=== PATIENT | male | born 1965 ===

== ENCOUNTER 2018-08-02 10:00 | Day surgery (SDC) | payer OTHER ==
[~2018-08-02] VITALS: Ht 181.6 cm; Wt 122.5 kg
[~2018-08-02 10:00] MED LIST: CEFAZOLIN 1,000 MG ONE; DEXAMETHASONE 4 MG/ML, 1ML ONE; FENTANYL PF 250 MCG/5ML ONE; LIDOCAINE-MPF 2% ,5ML ONE; MEPERIDINE/PF 50 MG/ML ONE; MIDAZOLAM 1 MG/ML, 2ML ONE; PROPOFOL 10 MG/ML, 20ML ONE; ROCURONIUM 10MG/ML,5ML ONE; SODIUM CHLORIDE 0.9% PF 10ML ONE; SUCCINYLCHOLINE 20 MG/ML, 10ML ONE
[2018-08-02] MEDS ORDERED: LACTATED RINGERS 1,000 ML IV SCH (10:25)
[2018-08-02 10:26] VITALS: BP 147/92
[2018-08-02] MEDS ORDERED: METF-163 PO (10:41)
[2018-08-02] MEDS ORDERED: ATOR10TA9 PO (10:41)
[2018-08-02] MEDS ORDERED: TADA20TA PO (10:41)
[2018-08-02] MEDS ORDERED: ZOLM5TAB10 PO (10:44)
[2018-08-02] MEDS ORDERED: TELM20TA PO (10:44)
[2018-08-02] MEDS ORDERED: ONDANSETRON ODT 8 MG PO ONE (11:00)
[2018-08-02] MEDS ORDERED: GABAPENTIN 300 MG CAPSULE PO ONE (11:00)
[2018-08-02] MEDS ORDERED: ACETAMINOPHEN 500 MG TABLET PO ONE (11:00)
[2018-08-02] MEDS ORDERED: THROMBIN 5,000 UNIT VIAL TP ONE (11:57)
[2018-08-02] MEDS ORDERED: BUPIVACAINE/PF-EPI 0.5% 1:200K ONE (11:58)
[2018-08-02] MEDS ORDERED: BACITRACIN 50,000 UNIT ONE (11:58)
[2018-08-02] MEDS ORDERED: PROPOFOL 10 MG/ML, 20ML ONE (12:11)
[2018-08-02] MEDS ORDERED: PHENYLEPHRINE 10 MG/ML ONE (12:14)
[2018-08-02] MEDS ORDERED: DIAZEPAM 5 MG/ML, 2ML IVPush PRN (12:30)
[2018-08-02] MEDS ORDERED: MEPERIDINE/PF 25MG/0.5ML IVPush PRN (12:30)
[2018-08-02] MEDS ORDERED: OXYcodone 5 MG/5 ML ORAL.SOL UDC PO PRN (12:30)
[2018-08-02] MEDS ORDERED: HYDROmorphone 1 MG/ML, 1ML IV PRN (12:30)
[2018-08-02] MEDS ORDERED: METOCLOPRAMIDE 5 MG/ML, 2ML IV PRN (12:30)
[2018-08-02] MEDS ORDERED: LABETALOL 5MG/ML, 20ML IV PRN (12:30)
[2018-08-02] MEDS ORDERED: MORPHINE SULFATE 4 MG/ML, 1ML IVPush PRN (12:30)
[2018-08-02] MEDS ORDERED: hydrALAzine 20 MG/ML, 1ML IV PRN (12:30)
[2018-08-02] MEDS: FENTANYL PF 100 MCG/2ML IV PRN ×2 (14:11→14:30)
[2018-08-02] MEDS ORDERED: FENTANYL PF 100 MCG/2ML ONE (14:11)
[2018-08-02] MEDS ORDERED: OXYcodone 5 MG/5 ML ORAL.SOL UDC ONE (14:11)
[2018-08-02] MEDS ORDERED: ONDANSETRON 2MG/ML, 2ML ONE (18:06)
[2018-08-02] MEDS ORDERED: ONDANSETRON 2MG/ML, 2ML IVPush PRN (18:30)
== END 2018-08-02 18:30 | disposition home or self-care (01) ==
LOC: OUT 10:00
PROVIDERS: ATTEND Neurological Surgery
DX: M54.16 Radiculopathy, lumbar region (principal); M48.07 Spinal stenosis, lumbosacral region; G47.33 Obstructive sleep apnea (adult) (pediatric); I10 Essential (primary) hypertension; I25.10 Atherosclerotic heart disease of native coronary artery without angina pectoris; E11.9 Type 2 diabetes mellitus without complications; Z79.899 Other long term (current) drug therapy; Z72.89 Other problems related to lifestyle
CPT/HCPCS: 63047; 63048; 72100; 82962; J0330; J0690; J1100; J2175; J2250; J2370; J2405; J2704; J3010; J3490; J7120; Q0162